=== PATIENT | female | born 1960 | race Caucasian/White ===

== ENCOUNTER 2020-02-14 06:15 | Outpatient (CLI) | payer OTHER | END 2020-02-14 23:59 | disposition home or self-care (01) | LOC: CVU 06:15 → CFH 23:59 | PROVIDERS: ATTEND Internal Medicine Cardiovascular Disease | DX: I34.0 Nonrheumatic mitral (valve) insufficiency (principal) | CPT/HCPCS: 78452; 93017; 93306; 93356; A9502 ==

== ENCOUNTER → 2020-05-12 | Outpatient (CLI) | payer OTHER | END | disposition home or self-care (01) | LOC: STAR 08:34 | PROVIDERS: ATTEND Anesthesiology | DX: Z20.828 Contact with and (suspected) exposure to other viral communicable diseases (principal) | CPT/HCPCS: 36415; 87635 ==

== ENCOUNTER 2020-05-19 05:48 | Observation (INO) | payer OTHER ==
[~2020-05-19] VITALS: Ht 172.7 cm; Wt 82.1 kg
[2020-05-19] MEDS ORDERED: SODIUM CHLORIDE 0.9% 1,000 ML IV SCH ×2 (06:21→06:30)
[2020-05-19] MEDS ORDERED: METO25TA2 PO (06:29)
[2020-05-19] MEDS ORDERED: APIX5TAB PO (06:29)
[2020-05-19] MEDS ORDERED: ATOR10TA9 PO (06:29)
[2020-05-19 06:30] VITALS: BP 137/82
[2020-05-19 07:02] LABS: INTERNATIONAL NORMALIZED RATIO 0.98 (0.93-1.1); PROTHROMBIN TIME 10.1 Seconds (9.6-11.5)
[2020-05-19 07:03] LABS: ANION GAP 3 mmol/L (5-15); CALCIUM 9.2 mg/dL (8.5-10.1); CHLORIDE 108 mmol/L (98-107); CREATININE 0.94 mg/dL (0.55-1.02)
[2020-05-19 07:04] LABS: BASOPHILS # (AUTO) 0.04 x10^3/uL (0-0.1); BASOPHILS % (AUTO) 1 % (0-1); EOSINOPHILS % (AUTO) 2 % (1-7); LYMPHOCYTES % (AUTO) 42 % (22-44); MD NO; MEAN CORPUSCULAR HEMOGLOBIN 32.6 pg (27.0-34.8); MEAN CORPUSCULAR HGB CONC 33.4 g/dL (32.4-35.8); MEAN CORPUSCULAR VOLUME 97.6 fL (80-100); MEAN PLATELET VOLUME 7.3 fL (7.4-10.4); MONOCYTES # (AUTO) 0.31 x10^3/uL (0.2-0.8); MONOCYTES % (AUTO) 7 % (2-9); NEUTROPHILS # (AUTO) 2.27 x10^3/uL (1.8-6.8); NEUTROPHILS % (AUTO) 48 % (42-75); PLATELET COUNT 285 x10^3/uL (130-400); RED BLOOD COUNT 4.55 x10^6/uL (3.82-5.3); RED CELL DISTRIBUTION WIDTH 12.8 % (9.6-15.2)
[2020-05-19] MEDS ORDERED: LIDOCAINE 2%, 20ML ONE ×2 (08:02→08:09)
[2020-05-19] MEDS ORDERED: ROCURONIUM 10MG/ML,5ML ONE ×2 (08:10)
[2020-05-19] MEDS ORDERED: ONDANSETRON 2MG/ML, 2ML ONE (08:10)
[2020-05-19] MEDS ORDERED: PHENYLEPHRINE 10 MG/ML ONE (08:10)
[2020-05-19] MEDS ORDERED: DEXAMETHASONE 4 MG/ML, 5ML ONE (08:10)
[2020-05-19] MEDS ORDERED: SUGAMMADEX 200 MG/2 ML IVPush ONE (08:10)
[2020-05-19] MEDS ORDERED: HEPARIN 1,000 UNITS/ML, 10ML ONE ×3 (08:10)
[2020-05-19] MEDS ORDERED: FENTANYL PF 100 MCG/2ML ONE (08:10)
[2020-05-19] MEDS ORDERED: MIDAZOLAM 1 MG/ML, 2ML ONE (08:10)
[2020-05-19] MEDS ORDERED: PROPOFOL 10 MG/ML, 20ML ONE (08:10)
[2020-05-19] MEDS ORDERED: SUCCINYLCHOLINE 20 MG/ML, 10ML ONE (08:10)
[2020-05-19] MEDS ORDERED: LIDOCAINE-MPF 2% ,5ML ONE (08:10)
[2020-05-19] MEDS ORDERED: ISOPROTERENOL 0.2MG/ML, 5ML ONE (11:06)
[2020-05-19] MEDS ORDERED: APIXABAN 5 MG TABLET ONE (11:46)
[2020-05-19] MEDS ORDERED: PANTOPRAZOLE 20MG TABLET PO ONE (12:00)
[2020-05-19] MEDS ORDERED: APIXABAN 5 MG TABLET PO ONE (12:30)
[2020-05-19 13:52] VITALS: BP 131/86
[2020-05-19 20:22] VITALS: BP 115/78
[2020-05-19] MEDS: APIXABAN 5 MG TABLET PO SCH (20:23)
[2020-05-20 01:03] VITALS: BP 127/79
[2020-05-20 07:23] VITALS: BP 128/70
[2020-05-20] MEDS ORDERED: PANT20TA4 PO (08:43)
[2020-05-20] MEDS: APIXABAN 5 MG TABLET PO SCH (09:09)
[2020-05-20] MEDS ORDERED: PANTOPRAZOLE 20MG TABLET PO ONE (09:30)
== END 2020-05-20 12:09 | disposition home or self-care (01) ==
LOC: CACL 05:48 → ORIP 11:51 → 5SO 12:59 → DCLOUNGE 05-20 12:01
PROVIDERS: ADMIT Internal Medicine Clinical Cardiac Electrophysiology; ATTEND Internal Medicine Clinical Cardiac Electrophysiology
DX: I48.91 Unspecified atrial fibrillation (principal); E78.5 Hyperlipidemia, unspecified; Z79.899 Other long term (current) drug therapy; Z79.82 Long term (current) use of aspirin
CPT/HCPCS: 36415; 80048; 85025; 85610; 93005; 93306; 93312; 93321; 93325; 93613; 93623; 93655; 93656; 93662; C1730; C1732; C1759; C1766; C1893; C1894; G0378; J0330; J1100; J1644; J2250; J2370; J2405; J2704; J3010; J3490